=== PATIENT | female | born 1965 | race Caucasian/White ===

== ENCOUNTER → 2016-11-24 | Day surgery (SDC) | payer BC ==
--- NOTE | 2016-11-24 15:27 | MM ---
EXAMINATION TYPE: MG stereo VAD BX LT DATE OF EXAM: 11/24/2016 2:38 PM COMPARISON: Mammograms November 12, 2016 and November 03, 2016 CLINICAL HISTORY: Abnormal mammogram, suspicious group of calcifications in the left breast. TECHNIQUE: Stereotactic guided core biopsy of left breast. FINDINGS: The procedure of stereotactic guided core biopsy was explained to the patient. Benefits, alternatives, and risks were discussed. An informed consent was then obtained. [facility] was chosen. Shortness pathway was cranial approach. I performed the localization, then surgeon, Dr Arevalo performed the remainder of the procedure. A vacuum assisted biopsy gun was used to obtain multiple core samples. The patient tolerated the procedure well without any immediate complication. The patient was kept in the radiology department for short stay after the procedure and then discharged home in stable condition. Targeted calcifications are identified in specimen mammogram. Post biopsy mammogram shows the clip to appear in satisfactory position relative to the targeted area of concern on the preprocedure images. No suspicious residual calcifications are present. IMPRESSION: SUCCESSFUL, UNCOMPLICATED STEREOTACTIC GUIDED CORE BIOPSY OF AREA OF CONCERN IN THE LEFT BREAST, FULL PATHOLOGY RESULTS TO FOLLOW. Intermediate index of suspicion noted at time of procedure. Pathology Results: High Risk BREAST, LEFT, STEREOTACTIC CORE BIOPSY: ATYPICAL INTRADUCTAL PROLIFERATION WITH CALCIFICATIONS, FAVOR ATYPICAL DUCTAL HYPERPLASIA. FIBROCYSTIC CHANGE (STROMAL FIBROSIS, CYST FORMATION, APOCRINE METAPLASIA, ADENOSIS, AND USUAL DUCT HYPERPLASIA). PORTION OF SKIN WITH DERMIS AND SUBCUTANEOUS TISSUE. Recommendation Surgical consult of the left breast. MAMIED
--- NOTE | 2016-11-24 19:36 | PCN ---
DATE OF PROCEDURE: PRE-PROCEDURE DIAGNOSIS: Mammographic abnormality, left breast. POST-PROCEDURE DIAGNOSIS: Mammographic abnormality, left breast. PROCEDURE: Left breast stereotactic core biopsy. PROCEDURE: Patient was taken to the stereotactic core biopsy room. The area of the left breast was prepped in a sterile fashion. The area of concern was identified. A needle was driven to the correct coordinates. Multiple core biopsies were obtained. Radiograph of the specimen revealed the area of concern had been sampled. After we were assured that hemostasis was attained, a marking clip was placed. Patient tolerated the procedure in stable condition. Specimen sent for pathology.
== END ==
LOC: RADMAMWWP 12:59
PROVIDERS: ATTEND Surgery
DX: N60.12 Diffuse cystic mastopathy of left breast (principal); N60.82 Other benign mammary dysplasias of left breast; N60.22 Fibroadenosis of left breast; N60.92 Unspecified benign mammary dysplasia of left breast; R92.8 Other abnormal and inconclusive findings on diagnostic imaging of breast; R92.1 Mammographic calcification found on diagnostic imaging of breast; E11.9 Type 2 diabetes mellitus without complications; E78.5 Hyperlipidemia, unspecified; Z79.899 Other long term (current) drug therapy; F17.200 Nicotine dependence, unspecified, uncomplicated
CPT/HCPCS: 88305; 88342; 88341; 19081; A4648

== ENCOUNTER 2016-12-22 08:25 | Day surgery (SDC) | payer BC ==
[2016-12-21 09:52] VITALS: BMI 32.4
[~2016-12-22 08:25] MED LIST: DEXAMETHASONE SOD PHOSPHATE 10 MG/ML 1 ML VIAL IV ONE; HEPARIN SODIUM,PORCINE 5,000 UNIT/ML 1 ML VIAL SQ ONE; HYDROmorphone 1 MG/ML 1 ML SYRINGE IVP PRN; LACTATED RINGERS 1,000 ML IV SCH; LIDOCAINE 1% 20 ML VIAL (10MG/ML) FOR IV START INTRADERMA PRN; MIDAZOLAM 2 MG/2 ML VIAL IV PRN; ONDANSETRON 4 MG/2 ML VIAL IVP ONE; SCOPOLAMINE 1.5MG/72HR PATCH TRANSDERM ONE; ceFAZolin 2 GM in SODIUM CHLORIDE 0.9% 100 ML IVPB ONE
[2016-12-22] MEDS ORDERED: LACTATED RINGERS 1,000 ML IV ONE ×2 (08:54→12:21)
[2016-12-22] MEDS ORDERED: LIDOCAINE 1% 20 ML VIAL (10MG/ML) FOR IV START INTRADERMA ONE (08:54)
[2016-12-22 09:09] LABS: Glucose,Whole Blood 144 mg/dL (75-99)
[2016-12-22] MEDS ORDERED: ALPRAZolam 0.5 MG TAB PO ONE (09:09)
[2016-12-22] MEDS ORDERED: SODIUM BICARB 4% 5 ML VIAL (0.48 MEQ/ML) MISCELLANE ONE (09:45)
[2016-12-22] MEDS ORDERED: LIDOCAINE 1% INJ 10MG/ML (20 ML MDV) SQ ONE ×3 (09:45→12:20)
[2016-12-22] MEDS ORDERED: NEOSTIGMINE 1 MG/ML 10 ML VIAL ONE (11:55)
[2016-12-22] MEDS ORDERED: ROCURONIUM BROMIDE 10 MG/ML 10 ML VIAL IV ONE (11:55)
[2016-12-22] MEDS ORDERED: fentaNYL (PF) 50 MCG/ML 2 ML AMP ONE (11:55)
[2016-12-22] MEDS ORDERED: GLYCOPYRROLATE 0.2 MG/ML 2 ML VIAL ONE (11:55)
[2016-12-22] MEDS ORDERED: PROPOFOL 10 MG/ML 20 ML VIAL IV ONE (11:55)
[2016-12-22] MEDS ORDERED: MIDAZOLAM 2 MG/2 ML VIAL ONE (11:55)
[2016-12-22] MEDS ORDERED: LIDOCAINE 1% INJ 10MG/ML (20 ML MDV) ONE (11:55)
--- NOTE | 2016-12-22 12:43 | P.OP ---
Date of Procedure: 12/22/16 Preoperative Diagnosis: Atypical hyperplasia left breast on core biopsy Postoperative Diagnosis: Same Procedure(s) Performed: Excisional biopsy area of concern in the left breast Anesthesia: ALLA Surgeon: Yahaira Arevalo Estimated Blood Loss (ml): 5 IV fluids (ml): 500 Pathology: other (Breast tissue) Condition: stable Disposition: PACU Indications for Procedure: Atypical hyperplasia on core biopsy Operative Findings: Dense breast tissue Description of Procedure: Patient was taken to the operating room and following induction of general anesthesia the left breast was prepped and draped in a sterile fashion. An incision was made and carried down to the hook of the needle localization wire. Surrounding tissue was excised. Hemostasis was attained using electrocautery device. The wound was well irrigated and there was no evidence of any active bleeding. Specimen was sent for radiographic confirmation area of concern about removed after was painted for local for orientation. Radiographs revealed that the area of concern had been removed. The surgeon's gloves were changed. The tissues were closed using 3-0 Vicryl suture and skin was closed using 4-0 Monocryl. The patient states incision was injected with 1% lidocaine. Steri-Strips were applied. Patient tolerated procedure in stable condition. Thank you this is a dictation patient is on hold. All instrument and sponge counts were correct at the end of the case.
[2016-12-22] MEDS ORDERED: HEPARIN SODIUM,PORCINE 5,000 UNIT/ML 1 ML VIAL SQ ONE (12:44)
--- NOTE | 2016-12-22 12:44 | P.DS ---
Providers Attending physician: Yahaira Arevalo Primary care physician: Stated None Plan - Discharge Summary New Discharge Prescriptions: HYDROcodone/APAP 5-325MG [[place] 5] 1 - 2 each PO Q4H PRN #20 tab PRN Reason: Pain Discharge Medication List Atorvastatin [Lipitor] 20 mg PO HS 12/21/16 [History] Empagliflozin [Jardiance] 10 mg PO DAILY 12/21/16 [History] Fenofibrate 160 mg PO DAILY 12/21/16 [History] Gabapentin [Neurontin] 300 mg PO HS 12/21/16 [History] metFORMIN HCL [Glucophage] 1,000 mg PO BID 12/21/16 [History] sitaGLIPtin [Januvia] 100 mg PO DAILY 12/21/16 [History] HYDROcodone/APAP 5-325MG [[place] 5] 1 - 2 each PO Q4H PRN #20 tab 12/22/16 [Rx] Follow up Appointment(s)/Referral(s): Yahaira Arevalo MD [STAFF PHYSICIAN] - 1 Week Activity/Diet/Wound Care/Special Instructions: Do not drive today Discharge Disposition: HOME SELF-CARE
[2016-12-22 13:01] VITALS: TEMP 96.8
[2016-12-22 13:19] LABS: Glucose,Whole Blood 187 mg/dL (75-99)
[2016-12-22 13:37] VITALS: RESP 18
[2016-12-22 13:45] VITALS: PULSE 101
[2016-12-22 14:14] VITALS: BP 108/68
--- NOTE | 2016-12-22 14:14 | MM ---
EXAMINATION TYPE: MG pre op needle loc LT, MG surgical specimen LT DATE OF EXAM: 12/22/2016 10:25 AM COMPARISON: Prior mammogram during stereotactic guided core biopsy November 24, 2016. CLINICAL HISTORY: Atypical intraductal proliferation with calcifications, favor atypical ductal hyperplasia. Abnormal pathology results as above on stereotactic guided core biopsy. TECHNIQUE: Needle localization with wire placement and surgical excision of area of concern in the left breast. FINDINGS: The procedure of needle localization with wire placement and than surgical excision was explained to the patient. Benefits, alternatives, and risks were discussed. An informed consent was then obtained. The shortest pathway for procedure was chosen. Shortest pathway was cranial approach. The overlying skin was prepped and draped in usual sterile fashion. Lidocaine buffered with bicarbonate was used as anesthetic into the skin and subcutaneous tissue up to the level of area of concern. A 5 cm needle was used. It was placed via a cranial approach under mammographic guidance. Subsequent 90 degrees mammogram show the needle to be in satisfactory position relative to the targeted area. At this point, wire was placed and the needle was withdrawn. The wire was fixed to patient's skin. Images were marked for surgeon. The patient tolerated the procedure well without any immediate complication. The patient was kept in the radiology department for short stay after the procedure and then taken to surgery for surgical excision. Targeted biopsy clip and wire are identified in specimen mammogram. The patient was kept in hospital for short stay after the procedure and then discharged home in stable condition. IMPRESSION: Successful, uncomplicated needle localization with wire placement and surgical excision of targeted biopsy clip in the left breast, full pathology results to follow. Pathology Results: High Risk BREAST, LEFT, NEEDLE LOCALIZATION EXCISION: FOCAL ATYPICAL DUCTAL HYPERPLASIA, MARGINS NEGATIVE. PREVIOUS BIOPSY SITE AND FIBROCYSTIC CHANGES INCLUDING CYSTS, FIBROSIS, ADENOSIS, MILD USUAL TYPE DUCTAL HYPERPLASIA, APOCRINE METAPLASIA AND MICROCALCIFICATIONS. 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 BENIGN INTRAMAMMARY LYMPH NODE. Recommendation Surgical consult of the left breast. MAGO
== END 2016-12-22 14:29 | disposition home or self-care (01) ==
LOC: OR 08:25
PROVIDERS: ATTEND Surgery
DX: N60.92 Unspecified benign mammary dysplasia of left breast (principal); N60.02 Solitary cyst of left breast; N60.22 Fibroadenosis of left breast; N60.82 Other benign mammary dysplasias of left breast; N62 Hypertrophy of breast; R92.0 Mammographic microcalcification found on diagnostic imaging of breast; F17.200 Nicotine dependence, unspecified, uncomplicated; E78.5 Hyperlipidemia, unspecified; E11.9 Type 2 diabetes mellitus without complications; Z79.84 Long term (current) use of oral hypoglycemic drugs; Z79.899 Other long term (current) drug therapy
CPT/HCPCS: 88307; 76098; 19120; 19281; J2250; J1644; J1100; J2710; J2405; J2001; J3010; J2704